=== PATIENT | female | born 1970 | race Caucasian/White ===

== ENCOUNTER 2018-09-12 00:06 | Outpatient (CLI) | payer OTHER ==
[2018-09-12 11:48] LABS: #Eosinphils 0.1 thou/uL (0.0-0.7); #Lymphocytes 1.9 thou/uL (1.20-3.40); #Monocytes 0.4 thou/uL (0.11-0.59); #Neutrophils 3.6 thou/uL (1.40-6.50); %Basophils 0.5 % (0.0-1.0); %Eosinophils 1.8 % (0.0-10.0); %Lymphocytes 31.6 % (21.0-51.0); %Monocytes 5.9 % (0.0-10.0); %Neutrophils 60.3 % (42.0-75.0); Mean Corpuscular Hemoglobin 25.4 pg (27.0-31.0); Mean Corpuscular Volume 79.4 fL (78.0-98.0); Mean Platelet Volume 8.7 fL (7.4-10.4); Platelet Count 347 thou/uL (130-400); Red Blood Cell (RBC) Count 4.72 mill/uL (4.20-5.40)
[2018-09-12 12:09] LABS: ALT (SGPT) 12 U/L (8-55); AST (SGOT) 10 U/L (5-34); Albumin 4.5 g/dL (3.5-5.0); Alkaline Phosphatase 52 U/L (40-150); Anion Gap 13 mmol/L (10-20); BUN (Urea Nitrogen) 13 mg/dL (7.0-18.7); Bilirubin, Total 0.4 mg/dL (0.2-1.2); Calc. Creatinine Clearance 0 mL/min (70-130); Calcium 9.8 mg/dL (7.8-10.44); Carbon Dioxide 24 mmol/L (22-29); Chloride 104 mmol/L (98-107); Estimated GFR-MDRD 70; Globulin 3.1 g/dL (2.4-3.5); Glucose 116 mg/dL (70-105); Potassium 4.1 mmol/L (3.5-5.1); Protein, Total 7.6 g/dL (6.0-8.3); Sodium 137 mmol/L (136-145)
[2018-09-12 12:11] LABS: BHCG - Serum Negative (NEGATIVE); Pregs Control Background? CLEAR/WHITE (CLR/WHITE); Pregs Control Bar Appear? YES (CONTROL BAR)
== END 2018-09-12 00:07 | disposition home or self-care (01) ==
LOC: LABBT 00:06
PROVIDERS: ATTEND Surgery
DX: Z01.812 Encounter for preprocedural laboratory examination (principal); K43.2 Incisional hernia without obstruction or gangrene
CPT/HCPCS: 80053; 84703; 85025

== ENCOUNTER 2018-09-13 06:05 | Day surgery (SDC) | payer OTHER ==
[2018-09-12 10:47] VITALS: BMI 32.8
[2018-09-13] MEDS ORDERED: Lidocaine 2% PF 5 ML VIAL ONE ×2 (06:30→06:51)
[2018-09-13] MEDS ORDERED: Bupivacaine PF 0.5% 30 ML VIAL ONE (06:30)
[2018-09-13] MEDS ORDERED: Bupivacaine HCl 0.5%/Epinephrine 1:200,000/PF 30 ml Vial ONE (06:36)
[2018-09-13] MEDS ORDERED: Fentanyl 100 MCG/2 ML VIAL ONE (06:43)
[2018-09-13] MEDS ORDERED: Bupivacaine/Epinephrine 0.25% 30 ML VIAL ONE (06:51)
--- NOTE | 2018-09-13 07:51 | HP ---
CHIEF COMPLAINT: Incisional hernia. HISTORY OF PRESENT ILLNESS: The patient is a 48-year-old female, who underwent a section 11 years ago, noticed a lump just below the umbilicus, it has become larger. No pain. PAST MEDICAL HISTORY: Significant for diabetes. PAST SURGICAL HISTORY: section x3. MEDICATIONS: 1. Metformin. 2. NovoLog. ALLERGIES: NO KNOWN DRUG ALLERGIES. FAMILY HISTORY: Unknown. SOCIAL HISTORY: Former smoker. She is . No tobacco. No alcohol. PHYSICAL EXAMINATION: VITAL SIGNS: Height 61.5, weight 190, and body mass index 35.3. GENERAL: She is a well-developed, well-nourished female, in no apparent distress. HEENT: Unremarkable. LUNGS: Clear. HEART: Regular rate and rhythm. ABDOMEN: There is a 3-cm defect at the upper aspect of low midline scar just below the umbilicus, reducible, not tender. EXTREMITIES: Good pulses. No pedal edema. ASSESSMENT: Incisional hernia. PLAN: Incisional hernia repair with mesh. CONSENT: I have discussed planned procedure as well as risk of bleeding, infection, and recurrence. She understands and gives informed consent. Job ID: [id number]
[2018-09-13] MEDS ORDERED: Glycopyrrolate 0.2 MG/ML 5 ML SYRINGE ONE (11:22)
[2018-09-13] MEDS ORDERED: Lidocaine 1% PF 5 ML VIAL ONE (11:22)
[2018-09-13] MEDS ORDERED: Ondansetron PF 4 MG/2 ML Vial ONE (11:22)
[2018-09-13] MEDS ORDERED: Rocuronium Bromide 10 MG/ML (10ML VIAL) ONE (11:22)
[2018-09-13] MEDS ORDERED: Ketorolac Tromethamine 30 MG/ML VIAL ONE (11:22)
[2018-09-13] MEDS ORDERED: ePHEDrine 50 MG/ML VIAL ONE (11:22)
[2018-09-13] MEDS ORDERED: PROPOFOL 200 MG/20 ML VIAL ONE (11:22)
[2018-09-13] MEDS ORDERED: traMADol HCl 50 MG TAB ONE (12:57)
--- NOTE | 2018-09-13 13:54 | OP ---
DATE OF PROCEDURE: 09/13/2018 PREOPERATIVE DIAGNOSIS: Incisional ventral hernia. PROCEDURE PERFORMED: Open incisional ventral hernia repair with mesh. INDICATIONS: A 48-year-old female, had a previous multiple C-sections through a low midline incision, developed a bulge just below the umbilicus. FINDINGS: 2 cm defect, 8 cm piece of mesh was used. DESCRIPTION OF PROCEDURE: After informed consent was obtained, the patient was taken to the operating room and given general mask anesthesia, placed in supine position, and abdomen was prepped and draped in usual fashion. Local anesthesia infiltrated subcutaneously and deep, and a subumbilical incision was performed. Subcu divided sharply. The hernia sac was found, it was dissected circumferentially. Extra hernia sac was excised. The defect was 2 cm. An 8 cm piece of Proceed mesh was hydrated and inserted intra-abdominally, then pulled up. The leads were sutured to the abdominal wall with interrupted 0 Ethibond. Then, the mesh was further secured to the abdominal wall with 0 Ethibond. Then, the hemostasis achieved with electrocautery. The skin was attached to the fascia with interrupted 3-0 Vicryl and the skin closed with interrupted 4-0 Rapide. Steri-Strips applied, sterile bandage applied. The patient tolerated the procedure well, transferred to Recovery in good condition. Sponge and needle count verified correct x2. Job ID: [id number]
== END 2018-09-13 13:12 | disposition home or self-care (01) ==
LOC: SDC 06:05
PROVIDERS: ATTEND Surgery
PROC: 0WUF0JZ Supplement Abdominal Wall with Synthetic Substitute, Open Approach (ICD-10-PCS; principal; 2018-09-13)
DX: K43.2 Incisional hernia without obstruction or gangrene (principal); E11.9 Type 2 diabetes mellitus without complications; Z87.891 Personal history of nicotine dependence; Z79.4 Long term (current) use of insulin; Z98.890 Other specified postprocedural states
CPT/HCPCS: 36416; C1781; J0131; J0670; J1885; J2001; J2405; J2704; J3010; J3490; S0020

== ENCOUNTER 2022-05-12 09:03 | Outpatient (CLI) | payer OTHER | END 2022-05-12 09:04 | disposition home or self-care (01) | LOC: BICRAD 09:03 | PROVIDERS: ATTEND Family Medicine | DX: M79.674 Pain in right toe(s) (principal); M19.071 Primary osteoarthritis, right ankle and foot ==